=== PATIENT | female | born 1975 | race Caucasian/White ===

== ENCOUNTER 2017-03-12 14:56 | Emergency (ER) | payer OTHER ==
[~2017-03-12] VITALS: Ht 162.6 cm; Wt 38.2 kg
[2017-03-12] MEDS ORDERED: ALPRAZOLAM0.25 M2 PO (15:16)
[2017-03-12] MEDS ORDERED: MORPHINE SULFAT30 M2 PO (15:16)
[2017-03-12] MEDS ORDERED: OXYCODONE HCL10 MG PO (15:16)
[2017-03-12] MEDS ORDERED: PROMETHAZINE HC25 M1 PO (15:17)
[2017-03-12 15:58] LABS: EOSINOPHIL (%) 0.6 % (0-5); EOSINOPHIL COUNT 0.1 K/uL (0-0.3); HEMATOCRIT 38.8 % (36.0-46.0); IMMATURE GRANULOCYTE (%) 0.2 % (0.0-0.7); INSTRUMENT ABS NEUTROPHIL CT 5.6 K/uL; LYMPHOCYTE COUNT 1.9 K/uL (1.0-2.8); MCH 29.8 PG (29.0-34.0); MCV 90.2 FL (83-99); MEAN PLAT.VOLUME 10.9 uM^3 (9.5-12.4); MONOCYTE (%) 5.7 % (3-12); MONOCYTE COUNT 0.5 K/uL (0-0.8); NEUTROPHIL (%) 69.9 % (45-76); NEUTROPHIL COUNT 5.6 K/uL (1.8-6.4); PLATELET COUNT 187 K/uL (156-360); RBC DIS.WIDTH-CV 13.4 % (11.8-14.6); WHITE BLOOD COUNT 8.1 K/uL (4.1-10.2)
[2017-03-12 16:06] LABS: CHLORIDE 109 mEq/L (99-109); SODIUM 138 mEq/L (136-147)
[2017-03-12 16:08] LABS: GLUCOSE 97 mg/dL (70-99)
[2017-03-12 16:09] LABS: ANION GAP 5 MEQ/L (2-14)
[2017-03-12 16:11] LABS: SERUM ETHYL ALCOHOL < 10 mg/dL
[2017-03-12 16:12] LABS: GFR ESTIMATE (CALCULATED) > 59 mL/min/
[2017-03-12 16:13] LABS: UREA NITROGEN (BUN) 9 mg/dL (9-23)
[2017-03-12 16:50] VITALS: BP 110/80
== END 2017-03-12 16:50 | disposition home or self-care (01) ==
LOC: EME 14:56
PROVIDERS: Emergency Medicine
DX: F43.23 Adjustment disorder with mixed anxiety and depressed mood (principal); G89.29 Other chronic pain; Z79.891 Long term (current) use of opiate analgesic; F17.200 Nicotine dependence, unspecified, uncomplicated
CPT/HCPCS: 80048; 81003; 85025; 90837; 99281; 99284; G0480

== ENCOUNTER 2017-07-13 17:26 | Emergency (ER) | payer OTHER ==
[~2017-07-13] VITALS: Ht 162.6 cm; Wt 40.6 kg
[~2017-07-13 17:26] MED LIST: ALPRAZOLAM0.25 M2 PO; MORPHINE SULFAT30 M2 PO; OXYCODONE HCL10 MG PO; PROMETHAZINE HC25 M1 PO
[2017-07-13 20:15] LABS: HEMATOCRIT 42.7 % (36.0-46.0); HEMOGLOBIN 14.7 G/DL (11.9-15.5); MCH 30.5 PG (29.0-34.0); MCHC 34.4 G/DL (30.0-36.0); MCV 88.6 FL (83-99); PLATELET COUNT 217 K/uL (156-360); RBC DIS.WIDTH-CV 13.2 % (11.8-14.6); RBC DIS.WIDTH-SD 42.8 % (39-53); RED BLOOD COUNT 4.82 M/uL (3.80-5.20); WHITE BLOOD COUNT 7.7 K/uL (4.1-10.2)
[2017-07-13 20:22] LABS: APPEARANCE SL.HAZY ((CLEAR)); BILIRUBIN NEGATIVE; BLOOD NEGATIVE; COLOR YELLOW ((YELLOW)); GLUCOSE (STRIP) NEGATIVE; KETONES 20; LEUKOCYTES TRACE; NITRITE NEGATIVE; PROTEIN (STRIP) 30; SPECIFIC GRAVITY 1.024 (1.000-1.030); UROBILINOGEN 0.2 MG/DL (0.2-1.0)
[2017-07-13 20:25] LABS: ALBUMIN 4.6 g/dL (3.2-4.8); CHLORIDE 106 mEq/L (99-109); POTASSIUM 3.9 mEq/L (3.7-5.4); SODIUM 140 mEq/L (136-147)
[2017-07-13 20:27] LABS: GLUCOSE 78 mg/dL (70-99)
[2017-07-13 20:28] LABS: TOTAL PROTEIN 7.2 g/dL (6.4-8.3)
[2017-07-13 20:29] LABS: TOTAL BILIRUBIN 0.6 mg/dL (0.0-1.0)
[2017-07-13 20:31] LABS: ALKALINE PHOSPHATASE 99 IU/L (3-129); CREATININE 0.6 mg/dL (0.6-1.3); GFR ESTIMATE (CALCULATED) > 59 mL/min/
[2017-07-13 20:32] LABS: UREA NITROGEN (BUN) 13 mg/dL (9-23)
[2017-07-13 20:33] LABS: BACTERIA RARE /HPF; CALCIUM OXALATE CRYSTALS 3+ /HPF; EPITHELIAL CELLS 1+ /HPF; MUCUS 4+ /LPF; UCUL ADDED? YES; WHITE BLOOD CELLS 15-20 /HPF (0-5)
[2017-07-13 20:33] LABS: AST (GOT) 13 IU/L (2-34)
[2017-07-13 20:34] LABS: ALT (GPT) 13 IU/L (3-49)
[2017-07-13] MEDS ORDERED: MACROBID100 MG PO (21:56)
[2017-07-13 22:18] VITALS: BP 131/56
== END 2017-07-13 22:19 | disposition home or self-care (01) ==
LOC: EME 17:26
PROVIDERS: Physician Assistant
DX: N39.0 Urinary tract infection, site not specified (principal); R00.0 Tachycardia, unspecified; R94.31 Abnormal electrocardiogram [ECG] [EKG]; M54.9 Dorsalgia, unspecified; G89.29 Other chronic pain; F41.9 Anxiety disorder, unspecified; F32.9 Major depressive disorder, single episode, unspecified; F17.200 Nicotine dependence, unspecified, uncomplicated; Z79.891 Long term (current) use of opiate analgesic
CPT/HCPCS: 74018; 80053; 81003; 84443; 85027; 87086; 93005; 99281; 99284; J0696; J7030